=== PATIENT | male | born 1930 | race Caucasian/White ===

== ENCOUNTER → 2017-03-12 | Outpatient (CLI) | payer OTHER ==
[~2017-03-12] MED LIST: ACIDOPHILUS1 EAC1 PO; AMIODARONE HCL200 MG PO; ASPIRIN81 MG PO; ATORVASTATIN CA40 MG PO; BUPIVACAINE 0.25% 30ML SDV INJ ONE; BUPIVACAINE LIPOSOME/PF 266 MG/20 ML IJ ONE; DOCUSATE SODIU100 MG PO; DONEPEZIL HCL10 MG PO; GELATIN SPONGE SZ 100 ONE; LIDOCAINE HCL 1% LOCAL INJ 20 ML VIAL ONE; LISINOPRIL5 MG PO; METOPROLOL TART25 MG PO; MULTIVITAMIN; NAMENDA PO; NAMENDA10 MG PO; TYLENOL WITH C1 EACH PO; VESICARE5 MG PO; XARELTO20 MG PO; ZINC OXIDE56.7 GM TOP
[2017-03-17 09:45] LABS: CLARITY,URINE HAZY (CLEAR); COLOR,URINE YELLOW (YELLOW); KETONES,URINE NEGATIVE (NEGATIVE); LEUKOCYTE ESTERASE ,URINE 1+ (NEGATIVE); NITRITE,URINE NEGATIVE (NEGATIVE); PROTEIN,URINE DIPSTICK NEGATIVE (NEGATIVE)
[2017-03-17 09:46] LABS: BACTERIA,URINE FEW /HPF; BILIRUBIN,URINE NEGATIVE (NEGATIVE); EPITHELIAL CELLS,URINE FEW /LPF; MUCUS,URINE FEW (RARE); RBC,URINE 0-5 /HPF (0-5); URINE UROBILINOGEN 0.2 mg/dL (0.2 - 1); WBC,URINE (MAN) 21-50 /HPF (0-5); YEAST,URINE FEW
== END ==
LOC: NPA 10:00
PROVIDERS: ATTEND Internal Medicine
DX: R69 Illness, unspecified (principal)
CPT/HCPCS: 81001; 87086

== ENCOUNTER 2017-03-21 03:50 | Inpatient (IN) | payer MEDICARE, OTHER ==
[~2017-03-21] VITALS: Ht 167.6 cm; Wt 68.3 kg
[~2017-03-21 03:50] MED LIST changes: -ACIDOPHILUS1 EAC1 PO; -BUPIVACAINE 0.25% 30ML SDV INJ ONE; -BUPIVACAINE LIPOSOME/PF 266 MG/20 ML IJ ONE; -DOCUSATE SODIU100 MG PO; -GELATIN SPONGE SZ 100 ONE; -LIDOCAINE HCL 1% LOCAL INJ 20 ML VIAL ONE; -NAMENDA10 MG PO; -ZINC OXIDE56.7 GM TOP
[2017-03-21] MEDS ORDERED: LIDOCAINE JELLY 2% 10ML URO-JET ONE (04:01)
[2017-03-21] MEDS ORDERED: NAMENDA10 MG PO (04:25)
[2017-03-21] MEDS ORDERED: ZINC OXIDE56.7 GM TOP (04:25)
[2017-03-21] MEDS ORDERED: DOCUSATE SODIU100 MG PO (04:25)
[2017-03-21] MEDS ORDERED: ACIDOPHILUS1 EAC1 PO (04:25)
[2017-03-21 05:03] LABS: BASOPHILS % 0.3 % (0.0-1.0); EOSINOPHILS # (AUTO) 0.1 (0.0-0.4); EOSINOPHILS % 0.5 % (0.0-6.0); HEMATOCRIT 29.3 % (38.2-49.6); HEMOGLOBIN 9.2 g/dL (14.0-18.0); LYMPHOCYTES # (AUTO) 0.7 (1.0-3.2); LYMPHOCYTES % 6.7 % (18.0-39.1); MEAN CORPUSCULAR HEMOGLOBIN 28.8 pg (28-32); MEAN CORPUSCULAR HGB CONC 31.4 g/dL (31-35); MEAN CORPUSCULAR VOLUME 91.6 fL (81-99); MONOCYTES # (AUTO) 0.9 (0.2-0.8); MONOCYTES % 8.8 % (4.4-11.3); NEUTROPHILS # (AUTO) 8.9 (2.1-6.9); NEUTROPHILS % 83.1 % (38.7-80.0); PLATELET COUNT 381 x10e3/uL (140-360); RED CELL DISTRIBUTION WIDTH 15.2 % (11.7-14.4)
[2017-03-21 05:07] LABS: INR 0.98; PARTIAL THROMBOPLASTIN TIME 28.8 seconds (23.8-35.5); PROTHROMBIN TIME 13.5 seconds (11.9-14.5)
[2017-03-21] MEDS ORDERED: MEROPENEM 1 GM VIAL ONE ×3 (05:07→20:31)
[2017-03-21] MEDS: MEROPENEM 1GRAM 1 GM in SODIUM CHLORIDE 0.9% 100 ML 100 ML IV SCH ×4 (05:11→22:31)
[2017-03-21 05:17] LABS: ANION GAP 12.2 mmol/L (8-16); CALCIUM 8.2 mg/dL (8.4-10.2); CREATININE, SERUM 1.33 mg/dL (0.72-1.25); POTASSIUM 4.2 mmol/L (3.5-5.1)
[2017-03-21 05:18] LABS: ALBUMIN 2.2 g/dL (3.5-5.0); ALBUMIN/GLOBULIN RATIO 0.5 (0.8-2.0)
[2017-03-21 05:24] LABS: CREATINE KINASE MB 1.5 ng/mL (0.00-5.00)
[2017-03-21 05:27] LABS: MAGNESIUM 1.1 MG/DL (1.3-2.1)
[2017-03-21 05:38] LABS: BILIRUBIN,URINE NEGATIVE (NEGATIVE); CLARITY,URINE HAZY (CLEAR); COLOR,URINE YELLOW (YELLOW); KETONES,URINE NEGATIVE (NEGATIVE); LEUKOCYTE ESTERASE ,URINE TRACE (NEGATIVE); NITRITE,URINE NEGATIVE (NEGATIVE); URINE UROBILINOGEN 0.2 mg/dL (0.2 - 1)
[2017-03-21 05:45] LABS: PROTEIN,URINE DIPSTICK 1+ (NEGATIVE)
[2017-03-21] MEDS ORDERED: MAGNESIUM SULFATE 2GM/50ML 50 ML IV ONE (05:45)
[2017-03-21 05:49] LABS: BACTERIA,URINE MANY /HPF; RBC,URINE >50 /HPF (0-5); WBC,URINE (MAN) >50 /HPF (0-5)
[2017-03-21 05:50] LABS: EPITHELIAL CELLS,URINE FEW /LPF; MUCUS,URINE MODERATE (RARE)
--- NOTE | 2017-03-21 05:54 | Diagnostic Imaging Report ---
EXAMINATION: Head CT without contrast. HISTORY:Altered mental status. COMPARISON:None. TECHNIQUE: Multidetector axial images were obtained from the foramen magnum to the vertex without contrast. The images were reconstructed using brain and bone algorithms. Thin section brain images were reformatted into coronal and sagittal planes. Intravenous contrast: None IMAGE QUALITY: Acceptable. FINDINGS: Skull/scalp: No abnormality. Parenchyma: Cortical-based hypodensity in right inferior frontal gyrus with associated volume loss represents chronic encephalomalacia possibly related to prior trauma or vascular insult. Nonspecific bilateral frontoparietal patchy white matter hypodensity are likely related to small vessel ischemic changes. 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 No acute hemorrhage, mass or acute major vascular territorial infarct. Arteries: No density suggestive of thrombosis. Dural sinuses: No abnormal density suggestive of thrombosis. Ventricles: Mild compensated dilatation due to volume loss. No hydrocephalus. Extra-axial spaces: No abnormal density. Brain volume: Generalized age-related cerebral volume loss. Craniocervical junction: No mass, Chiari malformation, or basilar invagination. Sella: No mass. Paranasal/mastoid sinuses: Mild mucosal thickening in right posterior ethmoid sinus. IMPRESSION: No acute intracranial hemorrhage, particularly no acute hemorrhage, mass or acute major vascular territorial infarct. Chronic encephalomalacia in right inferior frontal gyrus possibly related to prior trauma or vascular insult. Mild supratentorial white matter microvascular ischemic changes. Generalized age-related cerebral volume loss. Signed by: Dr. Jsesica Pérez M.D. on 03/21/2017 5:50 AM
--- NOTE | 2017-03-21 05:54 | Diagnostic Imaging Report ---
EXAM: CT ABDOMEN/PELVIS WO DATE: 03/21/2017 4:36 AM INDICATION: \S\Stone Protocol, PULLED OUT COTE WITH BALLOON INFLATED \S\[id number] \S\[id number] \S\Y COMPARISON: None available TECHNIQUE: The abdomen and pelvis were scanned using a multidetector helical scanner. Coronal and sagittal reformations were obtained. Routine stone protocol performed. IV Contrast: None FINDINGS: LOWER THORAX: Partially visualized pacing leads. Mild pericardial thickening. Small left trace right pleural effusions. LIVER/BILIARY: Incidental liver calcification. Moderate biliary ductal dilation status post cholecystectomy. SPLEEN: Not enlarged. Incidental splenic calcification. PANCREAS: Unremarkable ADRENALS: No nodules KIDNEYS: Minimal bilateral pelviectasis and ureterectasis. No renal or ureteral stones. GI TRACT: No evidence of obstruction. Prior appendectomy. Several large duodenal diverticuli and sigmoid diverticulosis. There is an end to side rectosigmoid anastomosis. VESSELS: Moderate atherosclerotic calcifications PERITONEUM/RETROPERITONEUM: Mild anterior perivesicular stranding and fluid. No free air. LYMPH NODES: No lymphadenopathy REPRODUCTIVE ORGANS/BLADDER: Streak artifact from left hip arthroplasty degrades evaluation in the pelvis. Cote catheter is bladder. SOFT TISSUES: Right fat and fluid containing inguinal hernia. BONES: Degenerative changes with minimal anterolisthesis of L4 on L5. Left hip arthroplasty.. IMPRESSION: Cote catheter positioned in the bladder. Mild anterior perivesicular/extraperitoneal stranding and edema is nonspecific but can be seen with infection or inflammation. If there is concern for urethral injury, recommend follow up retrograde urethrogram. Signed by: Dr Tonia Quinonez MD on 03/21/2017 5:50 AM
--- NOTE | 2017-03-21 05:55 | Diagnostic Imaging Report ---
CHEST SINGLE (PORTABLE), 03/21/2017 4:36 AM Technique: CHEST SINGLE (PORTABLE) Comparison: 10/28/2011. Clinical history: Altered mental status Findings: Note the lung apices are excluded. Impression: 1. Lines/Tubes: Left chest wall dual-lead pacer with right atrial and ventricular leads. 2. Stable cardiomediastinal silhouette, normal. 3. No or consolidation or edema. 4. No effusion or pneumothorax. Signed by: Dr Tonia Quinonez MD on 03/21/2017 5:52 AM
[2017-03-21] MEDS ORDERED: DEXTROSE 5%/0.45% SOD CHL 1,000 ML IV ONE (06:15)
[2017-03-21] MEDS ORDERED: ONDANSETRON HCL INJ 2 MG/ML VIAL IV PRN (06:15)
[2017-03-21 09:52] VITALS: BP 139/62
[2017-03-21 11:21] VITALS: BP 126/78
[2017-03-21 12:26] VITALS: BP 126/78
[2017-03-21 15:41] VITALS: BP 121/61
--- NOTE | 2017-03-21 16:18 | Consultation ---
DATE OF CONSULTATION: March 21, 2017 UROLOGY CONSULTATION REASON FOR CONSULTATION: Urethral trauma. HISTORY OF PRESENT ILLNESS: Chad Oneal is an 86-year-old man who has had a chronic Barnes catheter for several years. Patient's Barnes catheter has been managed by his urologist, who is no longer in his insurance plan. Dr. Gould would have his catheter changed in the office approximately every 6 weeks. The patient has had 2 episodes of urosepsis with bacteria growing in the blood. Suprapubic cystostomy was not offered to the patient to the best of the patient and his family's knowledge. The patient was at [facility] following previous hospitalization following a fall, and apparently he had pulled out his Barnes catheter with the balloon inflated, reported to the emergency room. The emergency room placed a 24-Bermudian Barnes catheter with a 10-mL balloon without calling me. I was consulted once the patient was already on the berry. PAST MEDICAL AND SURGICAL HISTORY 1. Colon cancer status post excision. 2. BPH and prostate enlargement. 3. Persistent urinary retention. 4. History of hydronephrosis due to urinary retention. 5. Status post pacemaker placement. 6. Dementia. 7. Atrial fibrillation. 8. Hyperlipidemia. CURRENT MEDICATIONS: Please refer to the MAR. ALLERGIES: NONE KNOWN. SOCIAL HISTORY: The patient denies smoking cigarettes. He used to smoke cigars and chew tobacco. The patient used to work for the [employer] for his entire career. FAMILY HISTORY: Noncontributory to the active urological problems. REVIEW OF SYSTEMS: As consistent with above history of present illness and past medical history, is otherwise negative for all other systems. PHYSICAL EXAMINATION GENERAL: A pleasant elderly man sitting up in bed in no apparent distress. VITAL SIGNS: He is currently afebrile. His vital signs are currently stable. ABDOMEN: Soft, nondistended, nontender, without costovertebral angle tenderness. Kidneys are not palpable. GENITOURINARY: Testes descended bilaterally and are nontender. The patient has an uncircumcised male phallus with severe phimosis. I cannot see the meatus well. There is a 24-Bermudian Barnes catheter in place, draining relatively clear urine out. There is some blood around the catheter and around the meatus. CT scan of the abdomen and pelvis that was done upon my instruction to the emergency room physician showed the Barnes catheter in the appropriate position with mild bilateral caliceal fullness. White blood cell count is 10,660, hemoglobin 9.7, platelets 381,000. The patient's creatinine is elevated at 1.33. His calcium is low at 8.2. His magnesium is low at 1.1. Urinalysis is significant for pyuria and hematuria. ASSESSMENT 1. Urinary retention. 2. Urethral trauma due to the patient pulling out his Barnes catheter with the balloon inflated. 3. Indwelling Barnes catheter. 4. Urinary tract infection. 5. Presumably acute renal failure. 6. Anemia. 7. Hypocalcemia. 8. Hypomagnesemia. 9. Hematuria. 10. Benign prostatic hypertrophy proven by prior scanning. 11. History of bilateral hydronephrosis. 12. Severe phimosis. PLAN 1. Leave the Barnes catheter in place at the present time. 2. Irrigate the Barnes p.r.n. 3. I will order another urine culture and sensitivity from the new catheter. 4. I defer the choice of antibiotics to the attending physician. 5. The patient needs ongoing urological followup. Based on his medical status, transurethral resection of the prostate may be in order if the patient does have bladder function on urodynamic study. Thank you very much for involving us in the care of your patient. We will be happy to follow him along with you as well as an outpatient. Job#: [id number] EV
[2017-03-21] MEDS ORDERED: ACETAMINOPHEN/CODEINE 300MG - 30MG TAB PO SCH (17:15)
[2017-03-21 20:00] VITALS: BP 138/67
[2017-03-21] MEDS: ZINC OXIDE 30 GM TUBE TOP SCH (22:31)
[2017-03-22] VITALS (8 sets, daily range): BP systolic 108–141; BP diastolic 48–69
[2017-03-22] MEDS ORDERED: MEROPENEM 1 GM VIAL ONE ×3 (07:06→21:59)
[2017-03-22] MEDS: MEROPENEM 1GRAM 1 GM in SODIUM CHLORIDE 0.9% 100 ML 100 ML IV SCH ×3 (07:06→22:00)
[2017-03-22 07:18] LABS: BASOPHILS % 0.4 % (0.0-1.0); EOSINOPHILS # (AUTO) 0.3 (0.0-0.4); EOSINOPHILS % 3.7 % (0.0-6.0); HEMOGLOBIN 8.3 g/dL (14.0-18.0); LYMPHOCYTES # (AUTO) 0.9 (1.0-3.2); LYMPHOCYTES % 13.4 % (18.0-39.1); MEAN CORPUSCULAR HEMOGLOBIN 28.6 pg (28-32); MEAN CORPUSCULAR HGB CONC 30.7 g/dL (31-35); MEAN CORPUSCULAR VOLUME 93.1 fL (81-99); MONOCYTES # (AUTO) 0.6 (0.2-0.8); NEUTROPHILS # (AUTO) 5.2 (2.1-6.9); NEUTROPHILS % 74.1 % (38.7-80.0); PLATELET COUNT 265 x10e3/uL (140-360); RED CELL DISTRIBUTION WIDTH 15.7 % (11.7-14.4)
[2017-03-22 07:40] LABS: ALANINE AMINOTRANSFERASE 7 IU/L (0-55); ALBUMIN 1.8 g/dL (3.5-5.0); ALBUMIN/GLOBULIN RATIO 0.5 (0.8-2.0); ALKALINE PHOSPHATASE 90 IU/L (40-150); BLOOD UREA NITROGEN 14 mg/dL (7-26); BUN/CREATININE RATIO 12 (6-25); CALCIUM 7.9 mg/dL (8.4-10.2); CARBON DIOXIDE 29 mmol/L (22-29); CHLORIDE 109 mmol/L (98-107); CREATININE, SERUM 1.17 mg/dL (0.72-1.25); EST GLOMERULAR FILTRATION RATE 59 ML/MIN (60-); GLUCOSE 93 mg/dL (74-118); SODIUM 143 mmol/L (136-145)
[2017-03-22] MEDS: MEMANTINE 10 MG TAB PO SCH ×2 (08:45→16:08)
[2017-03-22] MEDS: DONEPEZIL HCL 5 MG TAB PO SCH (08:45)
[2017-03-22] MEDS: AMIODARONE HCL 200 MG TAB PO SCH (08:45)
[2017-03-22] MEDS: ATORVASTATIN 40 MG TAB PO SCH (08:45)
[2017-03-22] MEDS: ASPIRIN 81 MG CHEW TAB PO SCH (08:45)
[2017-03-22] MEDS: DOCUSATE SODIUM 100 MG CAP PO SCH ×2 (08:45→16:08)
[2017-03-22] MEDS: LACTOBACILLUS ACIDOPHILUS CAPSULE PO SCH (08:45)
[2017-03-22] MEDS: METOPROLOL TARTRATE 25 MG TAB PO SCH (08:45)
[2017-03-22] MEDS: ZINC OXIDE 30 GM TUBE TOP SCH ×3 (08:45→21:00)
[2017-03-22] MEDS ORDERED: NAMENDA 28 MG PO SCH (09:00)
[2017-03-22] MEDS ORDERED: ACETAMINOPHEN/CODEINE 300MG - 30MG TAB PO PRN (09:45)
[2017-03-22] MEDS ORDERED: FUROSEMIDE INJ 10 MG/ML 4 ML VIAL IV ONE (21:15)
[2017-03-23] VITALS: BP 133/60
[2017-03-23 04:00] VITALS: BP 143/61
[2017-03-23] MEDS ORDERED: MEROPENEM 1 GM VIAL ONE (05:45)
[2017-03-23] MEDS: MEROPENEM 1GRAM 1 GM in SODIUM CHLORIDE 0.9% 100 ML 100 ML IV SCH (06:00)
[2017-03-23] MEDS: DONEPEZIL HCL 5 MG TAB PO SCH (09:34)
[2017-03-23] MEDS: ATORVASTATIN 40 MG TAB PO SCH (09:34)
[2017-03-23] MEDS: DOCUSATE SODIUM 100 MG CAP PO SCH ×2 (09:34→17:38)
[2017-03-23] MEDS: ASPIRIN 81 MG CHEW TAB PO SCH (09:34)
[2017-03-23] MEDS: AMIODARONE HCL 200 MG TAB PO SCH (09:34)
[2017-03-23] MEDS: LACTOBACILLUS ACIDOPHILUS CAPSULE PO SCH (09:35)
[2017-03-23] MEDS: METOPROLOL TARTRATE 25 MG TAB PO SCH (09:35)
[2017-03-23] MEDS: ZINC OXIDE 30 GM TUBE TOP SCH ×3 (09:35→21:00)
[2017-03-23] MEDS: MEMANTINE 10 MG TAB PO SCH ×2 (09:35→17:38)
--- NOTE | 2017-03-23 09:51 | Diagnostic Imaging Report ---
PROCEDURE: Frontal and lateral views of the chest. COMPARISON: Patients [facility], DX, CHEST SINGLE (PORTABLE), 03/21/2017, 2:31. INDICATIONS: ANEMIA, CRAKLES FINDINGS: Lines/tubes: Left chest wall dual lead cardiac device in appropriate position. Lungs: Bibasilar subsegmental atelectasis. There is no evidence of pneumonia or pulmonary edema. Pleura: Small bilateral pleural effusions. Heart and mediastinum: The heart and the mediastinum are normal. Focal eventration anteriorly of the right hemidiaphragm. Bones: No acute bony abnormality. IMPRESSION: Bibasilar subsegmental atelectasis with small effusions. Jesús Salcedo D.O. Dictated by: Jesús Salcedo D.O. on 03/23/2017 at 9:59 Electronically approved by: Jesús Salcedo D.O. on 03/23/2017 at 9:59
[2017-03-23 12:18] VITALS: BP 127/59
[2017-03-23] MEDS ORDERED: SODIUM CHLORIDE 0.9% 250ML 250 ML ONE (14:49)
[2017-03-23] MEDS: FLUCONAZOLE 200 MG/100 ML 100 ML IV SCH (15:00)
[2017-03-23 16:23] VITALS: BP 129/60
[2017-03-23] MEDS: NYSTATIN 15 GM POWDER UD BTL TOP SCH (17:38)
[2017-03-23] MEDS: MEROPENEM 1 GM VIAL IV SCH (18:29)
[2017-03-23 20:00] VITALS: BP 157/84
[2017-03-23 20:09] VITALS: BP 157/84
[2017-03-24 00:15] VITALS: BP 141/60
[2017-03-24] MEDS: MEROPENEM 1 GM VIAL IV SCH ×2 (02:45→10:45)
[2017-03-24 05:03] VITALS: BP 156/66
[2017-03-24 07:14] LABS: BASOPHILS % 0.3 % (0.0-1.0); EOSINOPHILS # (AUTO) 0.3 (0.0-0.4); EOSINOPHILS % 5.2 % (0.0-6.0); HEMOGLOBIN 8.5 g/dL (14.0-18.0); LYMPHOCYTES # (AUTO) 1.1 (1.0-3.2); LYMPHOCYTES % 17.2 % (18.0-39.1); MEAN CORPUSCULAR HEMOGLOBIN 28.8 pg (28-32); MEAN CORPUSCULAR HGB CONC 31.5 g/dL (31-35); MEAN CORPUSCULAR VOLUME 91.5 fL (81-99); MONOCYTES # (AUTO) 0.6 (0.2-0.8); MONOCYTES % 9.8 % (4.4-11.3); NEUTROPHILS # (AUTO) 4.2 (2.1-6.9); NEUTROPHILS % 66.4 % (38.7-80.0); PLATELET COUNT 258 x10e3/uL (140-360); RED BLOOD COUNT 2.95 x10e6/uL (4.3-5.7); RED CELL DISTRIBUTION WIDTH 15.1 % (11.7-14.4)
[2017-03-24 07:43] LABS: ANION GAP 9.4 mmol/L (8-16); BLOOD UREA NITROGEN 18 mg/dL (7-26); BUN/CREATININE RATIO 20 (6-25); CALCIUM 8.3 mg/dL (8.4-10.2); CARBON DIOXIDE 31 mmol/L (22-29); CHLORIDE 103 mmol/L (98-107); CREATININE, SERUM 0.91 mg/dL (0.72-1.25); EST GLOMERULAR FILTRATION RATE > 60 ML/MIN (60-); GLUCOSE 89 mg/dL (74-118); POTASSIUM 4.4 mmol/L (3.5-5.1); SODIUM 139 mmol/L (136-145)
[2017-03-24 07:48] VITALS: BP 136/74
[2017-03-24] MEDS: DOCUSATE SODIUM 100 MG CAP PO SCH (09:45)
[2017-03-24] MEDS: ATORVASTATIN 40 MG TAB PO SCH (09:45)
[2017-03-24] MEDS: MEMANTINE 10 MG TAB PO SCH (09:45)
[2017-03-24] MEDS: DONEPEZIL HCL 5 MG TAB PO SCH (09:45)
[2017-03-24] MEDS: ASPIRIN 81 MG CHEW TAB PO SCH (09:45)
[2017-03-24] MEDS: ZINC OXIDE 30 GM TUBE TOP SCH ×2 (09:45→15:03)
[2017-03-24] MEDS: AMIODARONE HCL 200 MG TAB PO SCH (09:45)
[2017-03-24] MEDS: METOPROLOL TARTRATE 25 MG TAB PO SCH (09:45)
[2017-03-24] MEDS: LACTOBACILLUS ACIDOPHILUS CAPSULE PO SCH (09:45)
[2017-03-24] MEDS: NYSTATIN 15 GM POWDER UD BTL TOP SCH (09:45)
[2017-03-24] MEDS ORDERED: CEFTRIAXONE SOD 1 GM VIAL IV SCH (11:00)
[2017-03-24 11:53] VITALS: BP 142/64
[2017-03-24] MEDS: FLUCONAZOLE 200 MG/100 ML 100 ML IV SCH (14:37)
[2017-03-24 15:48] VITALS: BP 108/59
--- NOTE | 2017-05-11 20:44 | Discharge Summary ---
CHIEF COMPLAINT: Anemia, dementia, hypomagnesemia. FINAL DIAGNOSES 1. Traumatic hematuria. 2. Urinary tract infection. 3. Anemia. 4. Dementia. [facility] This 86-year-[facility] male with a known history of atrial fib, dementia, chronic Barnes but no fever or chills and no vomiting or diarrhea presents with traumatic hematuria noted at the skilled facility where the patient was being cared for. He had pulled out his Barnes while the balloon was still inflated. Chest evaluation revealed inspiratory rales. Rhythm strip on the heart was showing a paced capture. Further care led to admission regarding status post pulled Barnes catheter, traumatic hematuria, atrial fib, dementia, questionable UTI. Plan will be reinserting the Barnes. Continue care home medications. Monitor further H and H's. Retain the urology follow. With admission, regarding his urethral trauma, he was reviewed by Dr. Bartlett from a urology standpoint. With his review, his findings were urinary retention and urethral trauma due to the patient pulling out his catheter with the balloon inflated. Patient is known to have a chronic indwelling Barnes catheter, urinary tract infection, presumably acute renal failure, anemia, hypocalcemia, hypomagnesemia, hematuria, benign prostatic hypertrophy proven by prior scanning, history of bilateral hydronephrosis, severe phimosis. Patient was placed on the med-surg floor from the ER and was beginning n.p.o. Vital signs were remaining stable. He was started on meropenem 500 mg IV q.8 h. and given IV fluids. His laboratory studies were revealing electrolytes to be stable. Kidney functions were BUN 12, creatinine 1.33, glucose 105. CBC: Hemoglobin 9.2 with a white cell count of 10,000. His daily medications were continuing as well. He was resting comfortably and was in no acute distress as his care continued. Hemoglobin dropped down to 8.3. Electrolytes were continuing to be stable. Discharge planning was being put in place through case management. He will be returning back to the skilled facility. The patient was transferred back on 03/24/2017 in stable condition. EKGs are showing normal sinus rhythm, low-voltage QRS, possible lateral infarct age undetermined, inferior infarct age undetermined. The patient returned back to [facility] with Barnes in place. Full code status once again. Will continue to receive rehab. I will be monitoring the patient's progress at that location and will be evaluating his status daily. Staff will be contacting my office as needed. Dictated By: GAEL Paniagua Job#: [id number]
== END 2017-03-24 18:22 | DRG 699 ==
LOC: ER 03:50 → ERHOLD 06:29 → MED/SURG3 09:21
DX: T83.511A Infection and inflammatory reaction due to indwelling urethral catheter, initial encounter (principal); S37.39XA Other injury of urethra, initial encounter; N17.9 Acute kidney failure, unspecified; E83.42 Hypomagnesemia; I48.91 Unspecified atrial fibrillation; D64.9 Anemia, unspecified; E83.51 Hypocalcemia; N39.0 Urinary tract infection, site not specified; N47.1 Phimosis; N40.1 Benign prostatic hyperplasia with lower urinary tract symptoms; R33.8 Other retention of urine; Z85.038 Personal history of other malignant neoplasm of large intestine; Z79.01 Long term (current) use of anticoagulants; Z95.0 Presence of cardiac pacemaker; I25.10 Atherosclerotic heart disease of native coronary artery without angina pectoris; I25.2 Old myocardial infarction
CPT/HCPCS: 36415; 70450; 71045; 71046; 74176; 80048; 80053; 81001; 82550; 82553; 82948; 83605; 83735; 84484; 85025; 85610; 85730; 86850; 86900; 87040; 87086; 87186; 93005; 96367; 96374; 99284; J0696; J1450; J1940; J2185; J7050

== ENCOUNTER → 2017-03-31 | Outpatient (CLI) | payer OTHER ==
[~2017-03-31] MED LIST changes: +ACIDOPHILUS1 EAC1 PO; +DOCUSATE SODIU100 MG PO; +NAMENDA10 MG PO; +ZINC OXIDE56.7 GM TOP
[2017-03-31 16:46] LABS: BILIRUBIN,URINE NEGATIVE (NEGATIVE); CLARITY,URINE CLOUDY (CLEAR); COLOR,URINE RED (YELLOW); KETONES,URINE NEGATIVE (NEGATIVE); LEUKOCYTE ESTERASE ,URINE 2+ (NEGATIVE); NITRITE,URINE NEGATIVE (NEGATIVE); PROTEIN,URINE DIPSTICK 3+ (NEGATIVE); URINE UROBILINOGEN 0.2 mg/dL (0.2 - 1)
[2017-03-31 18:35] LABS: BACTERIA,URINE FEW /HPF; EPITHELIAL CELLS,URINE RARE /LPF; RBC,URINE >50 /HPF (0-5)
== END ==
LOC: NPA 13:30
DX: Z02.89 Encounter for other administrative examinations (principal)
CPT/HCPCS: 81001; 87086; 87186

== ENCOUNTER → 2017-04-14 | Outpatient (CLI) | payer OTHER ==
[2017-04-14 15:57] LABS: ANION GAP 13.9 mmol/L (8-16); BLOOD UREA NITROGEN 19 mg/dL (7-26); BUN/CREATININE RATIO 22 (6-25); CALCIUM 8.7 mg/dL (8.4-10.2); CARBON DIOXIDE 24 mmol/L (22-29); CHLORIDE 106 mmol/L (98-107); CREATININE, SERUM 0.85 mg/dL (0.72-1.25); EST GLOMERULAR FILTRATION RATE > 60 ML/MIN (60-); GLUCOSE 90 mg/dL (74-118); POTASSIUM 3.9 mmol/L (3.5-5.1); SODIUM 140 mmol/L (136-145)
[2017-04-14 16:00] LABS: BASOPHILS % 0.3 % (0.0-1.0); EOSINOPHILS # (AUTO) 0.3 (0.0-0.4); EOSINOPHILS % 4.2 % (0.0-6.0); HEMATOCRIT 29.6 % (38.2-49.6); LYMPHOCYTES % 12.6 % (18.0-39.1); MEAN CORPUSCULAR HEMOGLOBIN 27.9 pg (28-32); MEAN CORPUSCULAR HGB CONC 30.4 g/dL (31-35); MEAN CORPUSCULAR VOLUME 91.6 fL (81-99); MONOCYTES # (AUTO) 0.6 (0.2-0.8); MONOCYTES % 6.9 % (4.4-11.3); NEUTROPHILS % 75.7 % (38.7-80.0); PLATELET COUNT 283 x10e3/uL (140-360); RED BLOOD COUNT 3.23 x10e6/uL (4.3-5.7); RED CELL DISTRIBUTION WIDTH 16.6 % (11.7-14.4)
== END ==
LOC: NPA 12:00
DX: Z02.89 Encounter for other administrative examinations (principal)
CPT/HCPCS: 36415; 80048; 85025

== ENCOUNTER → 2017-04-25 | Outpatient (CLI) | payer OTHER ==
[2017-04-25 17:27] LABS: BASOPHILS % 0.4 % (0.0-1.0); EOSINOPHILS % 0.3 % (0.0-6.0); HEMATOCRIT 31.4 % (38.2-49.6); HEMOGLOBIN 9.5 g/dL (14.0-18.0); LYMPHOCYTES # (AUTO) 1.3 (1.0-3.2); LYMPHOCYTES % 11.8 % (18.0-39.1); MEAN CORPUSCULAR HEMOGLOBIN 27.1 pg (28-32); MEAN CORPUSCULAR HGB CONC 30.3 g/dL (31-35); MEAN CORPUSCULAR VOLUME 89.5 fL (81-99); MONOCYTES # (AUTO) 0.9 (0.2-0.8); MONOCYTES % 8.4 % (4.4-11.3); NEUTROPHILS # (AUTO) 8.4 (2.1-6.9); NEUTROPHILS % 78.8 % (38.7-80.0); PLATELET COUNT 370 x10e3/uL (140-360); RED BLOOD COUNT 3.51 x10e6/uL (4.3-5.7); RED CELL DISTRIBUTION WIDTH 16.1 % (11.7-14.4)
[2017-04-25 17:37] LABS: BLOOD UREA NITROGEN 19 mg/dL (7-26); BUN/CREATININE RATIO 19 (6-25); CALCIUM 9.1 mg/dL (8.4-10.2); CARBON DIOXIDE 22 mmol/L (22-29); CHLORIDE 102 mmol/L (98-107); EST GLOMERULAR FILTRATION RATE > 60 ML/MIN (60-); GLUCOSE 80 mg/dL (74-118); SODIUM 135 mmol/L (136-145)
== END ==
LOC: NPA 11:30
DX: Z02.89 Encounter for other administrative examinations (principal)
CPT/HCPCS: 36415; 80048; 85025

== ENCOUNTER 2017-06-23 22:32 | Emergency (ER) | payer MEDICARE ==
[~2017-06-23] VITALS: Ht 167.6 cm; Wt 68.0 kg
[2017-06-24 00:24] LABS: BASOPHILS # (AUTO) 0.1 (0.0-0.1); BASOPHILS % 0.5 % (0.0-1.0); EOSINOPHILS # (AUTO) 0.5 (0.0-0.4); EOSINOPHILS % 4.9 % (0.0-6.0); HEMATOCRIT 30.4 % (38.2-49.6); HEMOGLOBIN 9.1 g/dL (14.0-18.0); MEAN CORPUSCULAR HEMOGLOBIN 24.1 pg (28-32); MEAN CORPUSCULAR HGB CONC 29.9 g/dL (31-35); MEAN CORPUSCULAR VOLUME 80.4 fL (81-99); MONOCYTES # (AUTO) 0.7 (0.2-0.8); MONOCYTES % 6.6 % (4.4-11.3); NEUTROPHILS # (AUTO) 7.6 (2.1-6.9); PLATELET COUNT 386 x10e3/uL (140-360); RED BLOOD COUNT 3.78 x10e6/uL (4.3-5.7); RED CELL DISTRIBUTION WIDTH 16.5 % (11.7-14.4)
[2017-06-24 00:28] LABS: PARTIAL THROMBOPLASTIN TIME 36.1 seconds (23.8-35.5)
[2017-06-24 00:31] LABS: CLARITY,URINE CLOUDY (CLEAR); COLOR,URINE RED (YELLOW); INR 1.86; KETONES,URINE NEGATIVE (NEGATIVE); LEUKOCYTE ESTERASE ,URINE 1+ (NEGATIVE); NITRITE,URINE NEGATIVE (NEGATIVE); PROTEIN,URINE DIPSTICK 2+ (NEGATIVE); PROTHROMBIN TIME 20.1 seconds (11.9-14.5)
[2017-06-24 00:32] LABS: BILIRUBIN,URINE NEGATIVE (NEGATIVE); RBC,URINE >50 /HPF (0-5); URINE UROBILINOGEN 0.2 mg/dL (0.2 - 1)
[2017-06-24 00:33] LABS: BACTERIA,URINE RARE /HPF; EPITHELIAL CELLS,URINE RARE /LPF
[2017-06-24 00:34] LABS: ALBUMIN 3.1 g/dL (3.5-5.0); ALBUMIN/GLOBULIN RATIO 0.8 (0.8-2.0); ANION GAP 14.7 mmol/L (8-16); CALCIUM 9.3 mg/dL (8.4-10.2); CREATININE, SERUM 1.46 mg/dL (0.72-1.25); POTASSIUM 3.7 mmol/L (3.5-5.1)
[2017-06-24 01:27] VITALS: BP 111/70
== END 2017-06-24 01:52 ==
LOC: ER 22:32
DX: S37.39XA Other injury of urethra, initial encounter (principal); R31.0 Gross hematuria; X58.XXXA Exposure to other specified factors, initial encounter; D72.829 Elevated white blood cell count, unspecified; R73.9 Hyperglycemia, unspecified; D64.9 Anemia, unspecified
CPT/HCPCS: 36415; 51703; 80053; 81001; 85025; 85610; 85730; 99284